=== PATIENT | male | born 1965 | race Caucasian/White ===

== ENCOUNTER 2017-12-30 19:44 | Emergency (ER) | payer BC, OTHER ==
[2017-12-30 20:23] VITALS: BP 151/85; PULSE 94; RESP 16; TEMP 96.7; O2SAT 97
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
[2017-12-30] MEDS ORDERED: TETANUS/DIPHTHERIA TOXOID ADULT 0.5 ML VIAL IM ONE (21:15)
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
== END 2017-12-30 22:05 | disposition home or self-care (01) ==
LOC: NEPD 19:44
DX: S61.511A Laceration without foreign body of right wrist, initial encounter (principal); S80.11XA Contusion of right lower leg, initial encounter; S39.012A Strain of muscle, fascia and tendon of lower back, initial encounter; V44.5XXA Car driver injured in collision with heavy transport vehicle or bus in traffic accident, initial encounter; Y92.411 Interstate highway as the place of occurrence of the external cause; Z23 Encounter for immunization
CPT/HCPCS: 12001; 73590; 90471; 90714